=== PATIENT | female | born 1990 | race Caucasian/White ===

== ENCOUNTER 2016-12-13 09:08 | Inpatient (IN) | payer BC ==
[~2016-12-13] VITALS: Ht 162.6 cm; Wt 83.0 kg
[~2016-12-13 09:08] MED LIST: ASPI-515 PO; DOCO200C3 PO
[2016-12-13] MEDS ORDERED: OXYTOCIN 30U/ 0.9% NaCL 500ML 500 ML IV ONE (22:35)
[2016-12-13] MEDS ORDERED: OXYTOCIN 30U/ 0.9% NaCL 500ML 500 ML IV PRN (22:35)
[2016-12-13] MEDS ORDERED: MISOPROSTOL 25 MCG TABLET VG PRN (23:00)
[2016-12-13] MEDS ORDERED: CALCIUM CARBONATE 500 MG TAB.CHEW PO PRN (23:00)
[2016-12-13] MEDS ORDERED: TERBUTALINE 1 MG/ML, 1ML IVPush PRN (23:00)
[2016-12-13] MEDS ORDERED: FENTANYL PF 100 MCG/2ML IV PRN (23:00)
[2016-12-13] MEDS ORDERED: ONDANSETRON 2MG/ML, 2ML IVPush PRN (23:00)
[2016-12-13] MEDS ORDERED: FENTANYL PF 100 MCG/2ML IVPush PRN (23:00)
[2016-12-13 23:07] LABS: HEMATOCRIT 31.3 % (34.6-47.8); HEMOGLOBIN 10.1 g/dL (11.7-16.4); WHITE BLOOD COUNT 7.9 x10^3/uL (3.4-10)
[2016-12-13] MEDS ORDERED: MISOPROSTOL 25 MCG TABLET ONE (23:11)
[2016-12-13 23:17] LABS: ASPARTATE AMINO TRANSFERASE 20 U/L (15-37); BLOOD UREA NITROGEN 18 mg/dL (7-18)
[2016-12-13] MEDS ORDERED: NEWBORN KIT ONE (23:20)
[2016-12-14] MEDS ORDERED: OXYTOCIN 30U/ 0.9% NaCL 500ML 500 ML ONE (04:06)
[2016-12-14] MEDS: D5%-LACTATED RINGERS 1,000 ML IV SCH ×2 (06:35→14:35)
[2016-12-14] MEDS: LACTATED RINGERS 1,000 ML IV SCH (14:04)
[2016-12-14] MEDS ORDERED: LACTATED RINGERS 1,000 ML IV SCH ×2 (18:01)
[2016-12-14] MEDS ORDERED: SIMETHICONE 80 MG CHEW TAB PO PRN (18:30)
[2016-12-14] MEDS ORDERED: OXYcodone/APAP 5/325MG TABLET PO PRN ×2 (18:30)
[2016-12-14] MEDS ORDERED: ONDANSETRON 2MG/ML, 2ML IV PRN (18:30)
[2016-12-14] MEDS ORDERED: MISOPROSTOL 200 MCG TABLET PR PRN (18:30)
[2016-12-14] MEDS ORDERED: OXYcodone IR 5MG TABLET PO PRN ×2 (18:30)
[2016-12-14] MEDS ORDERED: MEPERIDINE/PF 50 MG/ML IM PRN (18:30)
[2016-12-14] MEDS ORDERED: MEPERIDINE/PF 25MG/0.5ML IM PRN (18:30)
[2016-12-14] MEDS ORDERED: morphine SULFATE 10 MG/ML, 1ML IVPush PRN ×2 (18:30)
[2016-12-14] MEDS ORDERED: CALCIUM CARBONATE 500 MG TAB.CHEW PO PRN (18:30)
[2016-12-14] MEDS ORDERED: KETOROLAC 30 MG/1 ML IV PRN (18:30)
[2016-12-14] MEDS ORDERED: DOCUSATE 100 MG CAPSULE PO SCH (21:00)
[2016-12-15] MEDS: OXYTOCIN 30U/ 0.9% NaCL 500ML 500 ML IV SCH (04:01)
[2016-12-15] MEDS: LACTATED RINGERS 1,000 ML IV SCH ×3 (05:56→18:21)
[2016-12-15] MEDS: PRENATAL VIT/IRON/FA 1 EACH TABLET PO SCH (09:00)
[2016-12-15] MEDS ORDERED: OXYTOCIN 30U/ 0.9% NaCL 500ML 500 ML ONE (10:42)
[2016-12-15] MEDS ORDERED: FENTANYL/BUPIV./NS/PF 250 ML EPIDCONT ONE (15:12)
[2016-12-15] MEDS ORDERED: LIDOCAINE/PF 1.5%-EPI 1:200K, 30ML ONE (15:12)
[2016-12-15] MEDS ORDERED: FENTANYL/BUPIV./NS/PF 250 ML EPIDCONT SCH (16:18)
[2016-12-15] MEDS ORDERED: LACTATED RINGERS 1,000 ML IVBOLUS PRN (16:30)
[2016-12-15] MEDS ORDERED: LIDOCAINE 1%, 20ML ONE (17:39)
[2016-12-15] MEDS ORDERED: MISOPROSTOL 200 MCG TABLET ONE (17:39)
[2016-12-15] MEDS: D5%-LACTATED RINGERS 1,000 ML IV SCH (18:48)
[2016-12-15 19:30] VITALS: BP 135/79
[2016-12-16] MEDS: LACTATED RINGERS 1,000 ML IV SCH (02:30)
[2016-12-16] MEDS ORDERED: ONDANSETRON 2MG/ML, 2ML ONE (04:38)
[2016-12-16] MEDS ORDERED: IBUPROFEN 600 MG TABLET ONE (05:54)
[2016-12-16] MEDS ORDERED: HYDROcodone/APAP 5/325 TABLET ONE (05:54)
[2016-12-16] MEDS ORDERED: OXYTOCIN 30U/ 0.9% NaCL 500ML 500 ML ONE (05:54)
[2016-12-16] MEDS: IBUPROFEN 600 MG TABLET PO PRN ×3 (05:59→20:59)
[2016-12-16] MEDS: OXYTOCIN 30U/ 0.9% NaCL 500ML 500 ML IV SCH ×4 (05:59→23:30)
[2016-12-16] MEDS ORDERED: METHYLERGONOVINE 0.2 MG/ML IM PRN (06:30)
[2016-12-16] MEDS ORDERED: CARBOPROST TROMETHAMINE 250 MCG/ML, 1ML IM PRN (06:30)
[2016-12-16] MEDS ORDERED: CALCIUM CARBONATE 500 MG TAB.CHEW PO PRN (06:30)
[2016-12-16] MEDS ORDERED: MISOPROSTOL 200 MCG TABLET PR PRN (06:30)
[2016-12-16] MEDS ORDERED: GLYCERIN ADULT SUPP PR PRN (06:30)
[2016-12-16] MEDS ORDERED: BISACODYL 10 MG SUPP PR PRN (06:30)
[2016-12-16] MEDS ORDERED: MEASLES,MUMPS&RUBELLA VACC/PF 0.5 ML SQ PRN (06:30)
[2016-12-16] MEDS ORDERED: RHOGAM FROM BLOOD BANK 1 NOTE EA IM/IV ONE (06:30)
[2016-12-16] MEDS ORDERED: ACETAMINOPHEN 325 MG TABLET PO PRN ×2 (06:30)
[2016-12-16] MEDS ORDERED: DIPH,PERTUSS(ACELL),TET VAC/PF NC IM-VACC PRN (06:30)
[2016-12-16] MEDS ORDERED: METOCLOPRAMIDE 5 MG/ML, 2ML IV PRN (06:30)
[2016-12-16] MEDS ORDERED: MAGNESIUM HYDROXIDE 8%, 30ML UDC PO PRN (06:30)
[2016-12-16] MEDS ORDERED: ONDANSETRON 2MG/ML, 2ML IV PRN (06:30)
[2016-12-16] MEDS ORDERED: HYDROcodone/APAP 5/325 TABLET PO PRN (06:30)
[2016-12-16] MEDS ORDERED: HYDROcodone/APAP 10/325 MG TABLET ONE (08:29)
[2016-12-16] MEDS: HYDROcodone/APAP 10/325 MG TABLET PO PRN ×4 (08:32→22:21)
[2016-12-16 09:00] VITALS: BP 139/89
[2016-12-16] MEDS: PRENATAL VIT/IRON/FA 1 EACH TABLET PO SCH ×2 (09:00)
[2016-12-16 12:49] VITALS: BP 144/88
[2016-12-16 13:25] LABS: HEMATOCRIT 28.7 % (34.6-47.8); HEMOGLOBIN 9.3 g/dL (11.7-16.4); WHITE BLOOD COUNT 12.9 x10^3/uL (3.4-10)
[2016-12-16] MEDS: DOCUSATE 100 MG CAPSULE PO PRN (20:59)
[2016-12-16 21:00] VITALS: BP 142/89
[2016-12-16 23:41] VITALS: BP 126/82
[2016-12-17 03:45] VITALS: BP 141/88
[2016-12-17] MEDS: IBUPROFEN 600 MG TABLET PO PRN ×3 (03:49→16:49)
[2016-12-17] MEDS: HYDROcodone/APAP 10/325 MG TABLET PO PRN ×3 (04:23→15:08)
[2016-12-17 09:21] VITALS: BP 139/92
[2016-12-17] MEDS ORDERED: DOCU-131 PO (11:11)
[2016-12-17] MEDS ORDERED: IBUP-1222 PO (11:17)
[2016-12-17] MEDS ORDERED: HYDR-3240 PO (11:18)
[2016-12-17] MEDS: DOCUSATE 100 MG CAPSULE PO PRN (15:15)
[2016-12-17] MEDS: PRENATAL VIT/IRON/FA 1 EACH TABLET PO SCH (15:15)
== END 2016-12-17 17:51 | disposition home or self-care (01) | DRG 775 ==
LOC: LDIP 22:02 → 2NW 12-16 08:48
PROVIDERS: ADMIT Obstetrics & Gynecology; ATTEND Obstetrics & Gynecology
PROC: 10D07Z6 Extraction of Products of Conception, Vacuum, Via Natural or Artificial Opening (ICD-10-PCS; principal; 2016-12-16)
PROC: 0KQM0ZZ Repair Perineum Muscle, Open Approach (ICD-10-PCS; 2016-12-16)
PROC: 10E0XZZ Delivery of Products of Conception, External Approach (ICD-10-PCS; 2016-12-16)
PROC: 3E0S3CZ (ICD-10-PCS; 2016-12-16)
PROC: 00HU33Z Insertion of Infusion Device into Spinal Canal, Percutaneous Approach (ICD-10-PCS; 2016-12-16)
PROC: 10907ZC Drainage of Amniotic Fluid, Therapeutic from Products of Conception, Via Natural or Artificial Opening (ICD-10-PCS; 2016-12-16)
DX: O30.043 Twin pregnancy, dichorionic/diamniotic, third trimester (principal); Z37.2 Twins, both liveborn; D64.9 Anemia, unspecified; O14.94 Unspecified pre-eclampsia, complicating childbirth; O69.1XX0 Labor and delivery complicated by cord around neck, with compression, not applicable or unspecified; O70.1 Second degree perineal laceration during delivery; O99.02 Anemia complicating childbirth; Z82.49 Family history of ischemic heart disease and other diseases of the circulatory system; Z83.3 Family history of diabetes mellitus; Z3A.36 36 weeks gestation of pregnancy
CPT/HCPCS: 36415; 80053; 82803; 84550; 85025; 86850; 86900; 90715; J2405; J2590; J3010; J7120; J7121

== ENCOUNTER 2016-12-18 12:29 | Inpatient (IN) | payer BC ==
[~2016-12-18] VITALS: Ht 162.6 cm; Wt 77.2 kg
[~2016-12-18 12:29] MED LIST changes: +DOCU-131 PO; +HYDR-3240 PO; +IBUP-1222 PO
[2016-12-18] MEDS ORDERED: ONDANSETRON 2MG/ML, 2ML IVPush ONE (13:30)
[2016-12-18] MEDS ORDERED: SODIUM CHLORIDE FLUSH 10ML SYR IVF ONE (13:30)
[2016-12-18] MEDS ORDERED: ONDANSETRON 2MG/ML, 2ML ONE (13:45)
[2016-12-18 13:53] LABS: HEMATOCRIT 30.8 % (34.6-47.8); WHITE BLOOD COUNT 9.6 x10^3/uL (3.4-10)
[2016-12-18] MEDS ORDERED: LABETALOL 5MG/ML, 20ML IVPush ONE (14:00)
[2016-12-18 14:01] LABS: BLOOD UREA NITROGEN 14 mg/dL (7-18)
[2016-12-18 14:01] LABS: PATH.CAST-FLAG NOT PRESENT; SPERM-FLAG NOT PRESENT; SRC-FLAG NOT PRESENT; XTAL-FLAG NOT PRESENT; YLC-FLAG NOT PRESENT
[2016-12-18 14:07] LABS: ASPARTATE AMINO TRANSFERASE 62 U/L (15-37); IS PT STATUS REG ER OR PRE ER? YES
[2016-12-18] MEDS ORDERED: LABETALOL 5MG/ML, 20ML ONE (15:49)
[2016-12-18] MEDS ORDERED: MAGNESIUM SULFATE PMX 4GM/100M 100 ML ONE (15:54)
[2016-12-18] MEDS ORDERED: MAGNESIUM SULF. PMX 20GM/500ML 500 ML IV ONE (15:54)
[2016-12-18] MEDS ORDERED: MAGNESIUM SULFATE PMX 4GM/100M 100 ML IVPB ONE (16:00)
[2016-12-18] MEDS ORDERED: CALCIUM GLUCONATE 0.46MEQ/1ML IVPush ONE (16:00)
[2016-12-18] MEDS: MAGNESIUM SULF. PMX 20GM/500ML 500 ML IV PRN (17:22)
[2016-12-18] MEDS ORDERED: HYDROcodone/APAP 5/325 TABLET PO PRN (18:30)
[2016-12-18] MEDS ORDERED: IBUPROFEN 200 MG TABLET PO PRN (18:30)
[2016-12-19] MEDS ORDERED: MAGNESIUM SULF. PMX 20GM/500ML 500 ML IV ONE ×2 (02:02→14:51)
[2016-12-19] MEDS: MAGNESIUM SULF. PMX 20GM/500ML 500 ML IV PRN ×2 (02:04→14:53)
[2016-12-19 05:39] LABS: HEMATOCRIT 29.5 % (34.6-47.8); HEMOGLOBIN 9.5 g/dL (11.7-16.4); WHITE BLOOD COUNT 7.7 x10^3/uL (3.4-10)
[2016-12-19 05:57] LABS: ASPARTATE AMINO TRANSFERASE 166 U/L (15-37); BLOOD UREA NITROGEN 9 mg/dL (7-18)
[2016-12-19] MEDS ORDERED: POTASSIUM CHLORIDE 20 MEQ TAB.ER.PRT PO ONE (07:00)
[2016-12-19] MEDS ORDERED: LABETALOL 200 MG TABLET ONE ×2 (09:14→19:54)
[2016-12-19] MEDS ORDERED: PRENATAL VIT/IRON/FA 1 EACH TABLET ONE (09:30)
[2016-12-19] MEDS ORDERED: DOCUSATE 100 MG CAPSULE ONE (09:30)
[2016-12-19] MEDS: PRENATAL VIT/IRON/FA 1 EACH TABLET PO SCH (09:32)
[2016-12-19] MEDS: DOCUSATE 100 MG CAPSULE PO SCH (09:32)
[2016-12-19] MEDS: LABETALOL 200 MG TABLET PO SCH ×2 (09:33→19:56)
[2016-12-19 09:42] LABS: IS PT STATUS REG ER OR PRE ER? NO
[2016-12-19 10:02] VITALS: BP 162/91
[2016-12-19 11:50] VITALS: BP 139/81
[2016-12-19 13:05] LABS: HEMATOCRIT 28.8 % (34.6-47.8); HEMOGLOBIN 9.4 g/dL (11.7-16.4); WHITE BLOOD COUNT 7.7 x10^3/uL (3.4-10)
[2016-12-19 13:15] LABS: BLOOD UREA NITROGEN 11 mg/dL (7-18)
[2016-12-19 13:22] LABS: ASPARTATE AMINO TRANSFERASE 172 U/L (15-37)
[2016-12-19 13:23] LABS: IS PT STATUS REG ER OR PRE ER? YES
[2016-12-19 19:25] LABS: ASPARTATE AMINO TRANSFERASE 163 U/L (15-37); BLOOD UREA NITROGEN 12 mg/dL (7-18)
[2016-12-20 05:17] LABS: HEMATOCRIT 29.6 % (34.6-47.8); HEMOGLOBIN 9.5 g/dL (11.7-16.4); WHITE BLOOD COUNT 8.9 x10^3/uL (3.4-10)
[2016-12-20 05:37] LABS: ASPARTATE AMINO TRANSFERASE 134 U/L (15-37); BLOOD UREA NITROGEN 11 mg/dL (7-18)
[2016-12-20] MEDS ORDERED: LABETALOL 200 MG TABLET ONE ×2 (07:58→12:13)
[2016-12-20] MEDS ORDERED: PRENATAL VIT/IRON/FA 1 EACH TABLET ONE ×2 (07:58→07:59)
[2016-12-20] MEDS ORDERED: DOCUSATE 100 MG CAPSULE ONE (07:59)
[2016-12-20] MEDS: DOCUSATE 100 MG CAPSULE PO SCH (08:01)
[2016-12-20] MEDS: PRENATAL VIT/IRON/FA 1 EACH TABLET PO SCH (08:01)
[2016-12-20] MEDS: LABETALOL 200 MG TABLET PO SCH (08:02)
[2016-12-20 08:28] VITALS: BP 143/91
[2016-12-20 10:57] LABS: ASPARTATE AMINO TRANSFERASE 124 U/L (15-37)
[2016-12-20 11:45] VITALS: BP 166/93
[2016-12-20] MEDS ORDERED: LABETALOL 200 MG TABLET PO SCH (14:00)
[2016-12-20 14:23] VITALS: BP 134/89
[2016-12-20 17:10] VITALS: BP 139/81
[2016-12-20 18:29] LABS: ASPARTATE AMINO TRANSFERASE 92 U/L (15-37)
== END 2016-12-20 19:40 | disposition home or self-care (01) | DRG 776 ==
LOC: ED 15:15 → EDIP 16:36 → LDIP 16:56
PROVIDERS: ADMIT Student in an Organized Health Care Education/Training Program; ATTEND Student in an Organized Health Care Education/Training Program
DX: O14.95 Unspecified pre-eclampsia, complicating the puerperium (principal); K76.89 Other specified diseases of liver; O99.03 Anemia complicating the puerperium; O99.53 Diseases of the respiratory system complicating the puerperium; O26.63 Liver and biliary tract disorders in the puerperium; D64.9 Anemia, unspecified; Z82.49 Family history of ischemic heart disease and other diseases of the circulatory system
CPT/HCPCS: 36415; 71010; 80053; 81001; 82435; 83735; 83880; 84295; 84450; 84460; 84484; 84550; 85025; 87086; 93005; 93306; 96374; 96375; J2405; J3475